=== PATIENT | female | born 1980 | race Asian ===

== ENCOUNTER 2016-10-07 20:39 | Inpatient (IN) | payer OTHER ==
[~2016-10-07] VITALS: Ht 154.9 cm; Wt 51.0 kg
[2016-10-07 22:23] LABS: UA SPECIFIC GRAVITY 1.015 (1.005-1.035); microscopic required? YES; urine erythrocyte 3+ (NEGATIVE)
[2016-10-07 22:28] LABS: BASOPHIL % 1.4 % (0-2)
[2016-10-07 22:29] LABS: PLATELET COUNT 413 x10^3mcL (130-400); RED CELL DISTRIBUTION WIDTH 18.2 % (11.5-14.5)
[2016-10-07 22:37] LABS: CALCIUM 7.9 mg/dL (8.5-10.1); CARBON DIOXIDE 23.1 mmol/L (21-32); CHLORIDE SERUM 109 mmol/L (98-107); CREATININE SERUM 0.7 mg/dL (0.6-1.0); GFR1 > 60 mL/min; GLUCOSE SERUM 88 mg/dL (74-106); POTASSIUM SERUM 3.7 mmol/L (3.5-5.1); SODIUM SERUM 142 mmol/L (136-145)
[2016-10-07 22:50] LABS: ALBUMIN 3.5 g/dL (3.4-5.0); ALKALINE PHOSPHATASE 56 U/L (46-116); ALT/SGPT 21 U/L (14-59); AST/SGOT 22 U/L (15-37); BILIRUBIN TOTAL 0.22 mg/dL (0.20-1.00); TOTAL PROTEIN, SERUM 7.5 g/dL (6.4-8.2)
[2016-10-08] VITALS (8 sets, daily range): BP systolic 88–101; BP diastolic 33–67
[2016-10-08 00:22] LABS: RED BLOOD CELLS 3.74 M/mm3 (4.10-5.10)
[2016-10-08 00:26] LABS: T3 TOTAL 1.04 ng/mL
[2016-10-08 00:34] LABS: FREE T4 0.98 ng/dL (0.76-1.46); FREE THYROXINE INDEX 2.8 ug/dL (1.4-4.5); T4(THYROXINE) 8.9 ug/dL (4.7-13.3)
[2016-10-08 00:54] LABS: CHOLESTEROL/HDL RATIO 3.8; MAGNESIUM 2.1 mg/dL (1.8-2.4); PHOSPHOROUS 3.3 mg/dL (2.5-4.9)
[2016-10-08 06:09] LABS: BASOPHIL % 0.5 % (0-2); PLATELET COUNT 368 x10^3mcL (130-400)
[2016-10-08 06:24] LABS: CALCIUM 7.4 mg/dL (8.5-10.1); CARBON DIOXIDE 23.2 mmol/L (21-32); CHLORIDE SERUM 109 mmol/L (98-107); CREATININE SERUM 0.5 mg/dL (0.6-1.0); GFR1 > 60 mL/min; GLUCOSE SERUM 83 mg/dL (74-106); MAGNESIUM 2.2 mg/dL (1.8-2.4); PHOSPHOROUS 2.7 mg/dL (2.5-4.9); POTASSIUM SERUM 3.4 mmol/L (3.5-5.1); SODIUM SERUM 141 mmol/L (136-145)
[2016-10-08 07:26] LABS: TOTAL IRON BINDING CAPACITY 275 ug/dL (250-450)
[2016-10-08 07:53] LABS: IRON 13 ug/dL (50-170)
[2016-10-08 10:36] LABS: rbc morphology (normal/abnorm) ABNORMAL (NORMAL)
[2016-10-08 14:30] LABS: BASOPHIL % 0.7 % (0-2); PLATELET COUNT 373 x10^3mcL (130-400)
[2016-10-08 14:33] LABS: RED CELL DISTRIBUTION WIDTH 18.3 % (11.5-14.5)
[2016-10-08 14:39] LABS: AMPHETAMINE QUAL UR NONE DETECTED (NEG <=1000)
== END 2016-10-08 20:50 | disposition left against medical advice (07) | DRG 760 ==
LOC: ED 20:39 → DU 23:31
PROVIDERS: Emergency Medicine; ADMIT Family Medicine
PROC: 30233N1 Transfusion of Nonautologous Red Blood Cells into Peripheral Vein, Percutaneous Approach (ICD-10-PCS; principal; 2016-10-08)
DX: N92.0 Excessive and frequent menstruation with regular cycle (principal); D62 Acute posthemorrhagic anemia; R73.03 Prediabetes; E58 Dietary calcium deficiency; Z68.21 Body mass index [BMI] 21.0-21.9, adult
CPT/HCPCS: 80307; 82962; 83880; 84439; G0480; J7030; J7050; P9016; Q0092; Q0163

== ENCOUNTER 2016-10-21 13:25 | Emergency (ER) | payer OTHER ==
[~2016-10-21] VITALS: Ht 154.9 cm; Wt 49.9 kg
[2016-10-21 15:43] VITALS: BP 106/70
== END 2016-10-21 15:43 | disposition home or self-care (01) ==
LOC: ED 13:25
DX: R10.2 Pelvic and perineal pain (principal); N89.8 Other specified noninflammatory disorders of vagina; Z88.0 Allergy status to penicillin